=== PATIENT | male | born 1960 | race Caucasian/White ===

== ENCOUNTER 2019-01-26 15:08 | Emergency (ER) | payer OTHER ==
[2019-01-26] MEDS: NIFEdipine 10 MG CAP PO (18:01)
== END 2019-01-26 20:51 | disposition home or self-care (01) ==
LOC: FTE 20:51
DX: S69.92XA Unspecified injury of left wrist, hand and finger(s), initial encounter (principal); I10 Essential (primary) hypertension; W01.0XXA Fall on same level from slipping, tripping and stumbling without subsequent striking against object, initial encounter; Y92.9 Unspecified place or not applicable
CPT/HCPCS: 29130; 73130-LT; 99283-25